=== PATIENT | female | born 1970 | race Two or more races ===

== ENCOUNTER 2017-02-19 12:18 | Emergency (ER) | payer MEDICAID ==
[~2017-02-19] VITALS: Ht 157.5 cm; Wt 70.3 kg
[2017-02-19 13:19] LABS: Urine Bacteria NONE SEEN /hpf (None Seen); Urine Blood 2+ /uL (Negative); Urine Mucus FEW (None Seen); Urine Specific Gravity 1.016 (1.001-1.035); Urine WBC 2 /hpf (0 - 5)
[2017-02-19] MEDS ORDERED: SODIUM CHLORIDE 0.9% 500 ML IV ONE (13:45)
[2017-02-19 13:59] LABS: Basophils # (auto) 0 uL; Basophils % (auto) 0.7 % (0.0-2.0); Eosinophils # (auto) 0.1 uL; Eosinophils % (auto) 1.8 % (0.0-7.0); Hematocrit 35.3 % (36.0-46.0); Hemoglobin 11.5 g/dL (12.2-16.2); Lymphocytes # (auto) 2.5 uL; Lymphocytes % (auto) 48.5 % (10.0-50.0); Mean Corpuscular Hemoglobin 28.4 pg (28.0-32.0); Mean Corpuscular Hgb Conc. 32.6 g/dL (32.0-36.0); Mean Corpuscular Volume 87.1 fL (80.0-100.0); Monocytes # (auto) 0.5 uL; Monocytes % (auto) 8.6 % (0.0-12.0); Neutrophils # (auto) 2.1 uL; Neutrophils % (auto) 40.4 % (37.0-80.0); Nucleated Red Blood Cells % 0.1 %; Platelet Count (auto) 258 10^3/uL (140-450); Red Blood Cells 4.05 10^6/uL (4.0-5.20); Red Cell Distribution Width 14.8 % (11.8-14.3); White Blood Cell 5.2 10^3/uL (4.4-10.8)
[2017-02-19 14:21] LABS: Albumin 3.9 g/dL (3.4-5.0); BUN/Creatinine Ratio 19.2; Bilirubin, Total 0.3 mg/dL (0.2-1.0); Calcium 8.7 mg/dL (8.5-10.1); Potassium 3.8 mmol/L (3.5-5.1); Total Protein 7.4 g/dL (6.4-8.2)
[2017-02-19 18:19] VITALS: BP 122/68
== END 2017-02-19 18:51 | disposition home or self-care (01) ==
LOC: ER 12:18
DX: D25.9 Leiomyoma of uterus, unspecified (principal); R51 Headache; R42 Dizziness and giddiness
CPT/HCPCS: 36415; 76830; 76856; 80053; 81001; 84702; 85025; 96360; 99285; J7030

== ENCOUNTER 2019-04-26 09:43 | Emergency (ER) | payer MEDICAID ==
[~2019-04-26] VITALS: Ht 157.5 cm; Wt 71.7 kg
[2019-04-26 11:48] VITALS: BP 135/69
== END 2019-04-26 12:01 | disposition home or self-care (01) ==
LOC: ER 09:48 → MERGE 09:48 → ER 12:01
DX: J01.90 Acute sinusitis, unspecified (principal); Z87.891 Personal history of nicotine dependence

== ENCOUNTER 2021-08-09 14:03 | Emergency (ER) | payer MEDICAID ==
[~2021-08-09] VITALS: Ht 157.5 cm; Wt 71.7 kg
[2021-08-09 15:21] LABS: Basophils # (auto) 0 10 ^3/uL (0-0.2); Basophils % (auto) 0.6 % (0.0-2.0); Eosinophils # (auto) 0.1 10 ^3/uL (0-0.8); Eosinophils % (auto) 1.7 % (0.0-7.0); Hematocrit 38.1 % (36.0-46.0); Hemoglobin 13.1 g/dL (12.2-16.2); Lymphocytes # (auto) 1.5 10 ^3/uL (0.4-5.4); Lymphocytes % (auto) 31.7 % (10.0-50.0); Mean Corpuscular Hemoglobin 32.4 pg (28.0-32.0); Mean Corpuscular Hgb Conc. 34.3 g/dL (32.0-36.0); Mean Corpuscular Volume 94.5 fL (80.0-100.0); Monocytes # (auto) 0.3 10 ^3/uL (0-1.3); Monocytes % (auto) 6.9 % (0.0-12.0); Neutrophils # (auto) 2.9 10 ^3/uL (1.6-8.6); Neutrophils % (auto) 59.1 % (37.0-80.0); Nucleated Red Blood Cells % 0.1 %; Red Blood Cells 4.03 10^6/uL (4.0-5.20); Red Cell Distribution Width 13.7 % (11.8-14.3); White Blood Cell 4.9 10^3/uL (4.4-10.8)
[2021-08-09 15:40] LABS: Albumin 3.7 g/dL (3.4-5.0); BUN/Creatinine Ratio 17.8; Calcium 8.5 mg/dL (8.5-10.1); Potassium 3.9 mmol/L (3.5-5.1)
[2021-08-09 15:43] LABS: Bilirubin, Total 0.3 mg/dL (0.2-1.0)
[2021-08-10 00:30] VITALS: BP 142/69
[2021-08-10 01:20] LABS: Urine Bacteria NONE SEEN /hpf (None Seen); Urine Blood 3+ /uL (Negative); Urine Mucus FEW (None Seen); Urine Specific Gravity 1.025 (1.001-1.035); Urine WBC 62 /hpf (0 - 5)
== END 2021-08-10 00:17 | disposition home or self-care (01) ==
LOC: ER 14:03
DX: N93.9 Abnormal uterine and vaginal bleeding, unspecified (principal); M54.50 Low back pain, unspecified; D25.9 Leiomyoma of uterus, unspecified; N93.8 Other specified abnormal uterine and vaginal bleeding; N18.9 Chronic kidney disease, unspecified
CPT/HCPCS: 36415; 74176; 76856; 80053; 81001; 84702; 85025

== ENCOUNTER 2023-07-21 12:03 | Emergency (ER) | payer MEDICAID ==
[~2023-07-21] VITALS: Ht 154.9 cm; Wt 74.4 kg
[2023-07-21 14:29] LABS: Basophils # (auto) 0 10 ^3/uL (0-0.2); Basophils % (auto) 0.5 % (0.0-2.0); Eosinophils # (auto) 0.1 10 ^3/uL (0-0.8); Eosinophils % (auto) 1.5 % (0.0-7.0); Hematocrit 42.3 % (36.0-46.0); Hemoglobin 13.8 g/dL (12.2-16.2); Lymphocytes # (auto) 2.1 10 ^3/uL (0.4-5.4); Lymphocytes % (auto) 43.3 % (10.0-50.0); Mean Corpuscular Hemoglobin 31.4 pg (28.0-32.0); Mean Corpuscular Hgb Conc. 32.6 g/dL (32.0-36.0); Mean Corpuscular Volume 96.3 fL (80.0-100.0); Monocytes # (auto) 0.3 10 ^3/uL (0-1.3); Monocytes % (auto) 5.9 % (0.0-12.0); Neutrophils # (auto) 2.3 10 ^3/uL (1.6-8.6); Neutrophils % (auto) 48.8 % (37.0-80.0); Red Blood Cells 4.39 10^6/uL (4.0-5.20); Red Cell Distribution Width 13.5 % (11.8-14.3); White Blood Cell 4.8 10^3/uL (4.4-10.8)
[2023-07-21 14:44] LABS: Chloride 107 mmol/L (98-107); Potassium 3.8 mmol/L (3.5-5.1); Sodium 140 mmol/L (136-145)
[2023-07-21 14:45] LABS: Anion Gap 5 (5-15); Calcium 9.4 mg/dL (8.7-10.4); Carbon Dioxide 28 mmol/L (20-30)
[2023-07-21 14:50] LABS: BUN/Creatinine Ratio 13.2 (10.0-20.0); Blood Urea Nitrogen 9 mg/dL (9-23); Glucose 83 mg/dL (74-106)
[2023-07-21] MEDS: ASPirin 81 mg TAB PO ONE (16:43)
[2023-07-21 16:44] VITALS: BP 142/75; PULSE 75; RESP 18; TEMP 98.1; O2SAT 97
== END 2023-07-21 16:45 | disposition home or self-care (01) ==
LOC: ER 12:03
DX: R07.89 Other chest pain (principal); Z79.899 Other long term (current) drug therapy
CPT/HCPCS: 36415; 71046; 80048; 83735; 84484; 85025

== ENCOUNTER 2025-03-18 06:29 | Emergency (ER) | payer MEDICAID ==
[~2025-03-18] VITALS: Ht 157.5 cm; Wt 72.2 kg
--- NOTE | 2025-03-18 06:52 | ED.PDOC ---
Musculoskeletal HPI Comments This is a 54 year-old female who presents to the ED with a chief complaint of Left Upper Extremity pain as of last night. Patient denies any trauma or injury to the area. Patient reports an associated numbing sensation as expresses concerns of possible [place]. Patient Patient has no further complaints or modifying factors at this time. Patient otherwise denies any chest pain, headache, fever, chills, dizziness, or N/V. 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, Ovarian Cancer, Uterine Fibroids Family History Family History: Family hx of DM, Family hx of heart charles Social History Smoker: Non-Smoker Alcohol: Denies ETOH Use Drugs: Denies Drug Use Lives In: Home Constitutional: denies: chills, diaphoresis, fatigue, fever, malaise, sweats, weakness, others EENTM: denies: blurred vision, double vision, ear bleeding, ear discharge, ear drainage, ear pain, ear ringing, eye pain, eye redness, hearing loss, mouth pain, mouth swelling, nasal discharge, nose bleeding, nose congestion, nose pain, photophobia, tearing, throat pain, throat swelling, voice changes, others Respiratory: denies: cough, hemoptysis, orthopnea, SOB at rest, shortness of breath, SOB with excertion, stridor, wheezing, others Cardiovascular: denies: chest pain, dizzy spells, diaphoresis, Dyspnea on exertion, edema, irregular heart beat, left arm pain, lightheadedness, palpitations, PND, syncope, others Gastrointestinal: denies: abdomen distended, abdominal pain, blood streaked bowels, constipated, diarrhea, dysphagia, difficulty swallowing, hematemesis, melena, nausea, poor appetite, poor fluid intake, rectal bleeding, rectal pain, vomiting, others Genitourinary: denies: abnormal vagina bleeding, burning, dyspareunia, dysuria, flank pain, frequency, hematuria, incontinence, pain, , vagina discharge, urgency, others Neurological: reports: left sided numbness; denies: dizziness, fainting, headache, left sided weakness, numbness, paresthesia, pre-existing deficit, right sided numbness, right sided weakness, seizure, speech problems, tingling, tremors, weakness, others Musculoskeletal: reports: joint pain; denies: back pain, gout, joint swelling, muscle pain, muscle stiffness, neck pain, others Integumetry: denies: bruises, change in color, change in hair/nails, dryness, laceration, lesions, lumps, rash, wounds, others Allergic/Immunocompromised: denies: Difficulty Healing, Frequent Infections, Hives, Itching, others Hematologic/Lymphatic: denies: anemia, blood clots, easy bleeding, easy bruising, swollen glands, others Endocrine: denies: excessive hunger, excessive sweating, excessive thirst, excessive urination, flushing, intolerance to cold, intolerance to heat, unexplained weight gain, unexplained weight loss, others Psychiatric: denies: anxiety, bipolar disorder, depression, hopeless, panic disorder, schizophrenia, sleepless, suicidal, others All Other Systems: Reviewed and Negative Physical Exam General Appearance: Moderate Distress HEENT: Normal ENT Inspection, Pharynx Normal, TMs Normal Neck: Full Range of Motion, Non-Tender, Normal, Normal Inspection Respiratory: Chest Non-Tender, Lungs Clear, No Accessory Muscle Use, No Resp iratory Distress, Normal Breath Sounds Cardiovascular: No Edema, No JVD, No Murmur, No Gallop, Normal Peripheral Pulses, Regular Rate/Rhythm Breast Exam: Deferred Gastrointestinal: No Organomegaly, Non Tender, No Pulsatile Mass, Normal Bowel Sounds, Soft Genitalia: Deferred Pelvic: Deferred Rectal: Deferred Extremities: No calf tenderness, Normal capillary refill, Normal inspection, Normal range of motion, Non-tender, No pedal edema Musculoskeletal : Apperance: Normal Neurologic: Alert, documentation clerk II-XII nml as Tested, No Motor Deficits, Normal Affect, Normal Mood, No Sensory Deficits Cerebellar Function: Normal Reflexes: Normal Skin: Dry, Normal Color, Warm Peripheral Pulses: 3+ Radial (R), 3+ Radial (L) Lymphatic: No Adenopathy Was a procedure done? Was a procedure done?: No Differential Diagnosis EXT Differential Diagnosis: Fracture, Sprain, Strain, Arthritis X-Ray, Labs, Meds, VS Vital Signs Date Time Temp Pulse Resp B/P (MAP) Pulse Ox O2 Delivery O2 Flow Rate FiO2 03/18/25 07:50 70 20 99 Room Air 03/18/25 07:50 98.5 70 20 129/85 (100) 99 98.5 03/18/25 06:32 98.0 68 18 152/88 98 98.0 Current Medications Medications (Trade) Dose Ordered Sig/Olya Route Start Time Stop Time Status Last Admin Ketorolac Tromethamine (Toradol Injection) 60 mg ONCE ONCE IM 03/18/25 07:00 03/18/25 07:01 DC 03/18/25 08:00 Patient alert. Complaining of shoulder pain. Vitals stable. Answering questions. Saturation pristine on room air. X-ray of the shoulder does not show any acute process other than chronic changes. No point tenderness. Was given pain medication. Was given prescription of Motrin. Was told to follow up with her orthopedic. Explained to the patient. Was told to follow up with her primary care physician. Was told to come back if there is any problem. Time of 1ST Reevaluation: 07:39 Reevaluation 1ST: Improved Patient Education/Counseling: Diagnosis, Treatment Family Education/Counseling: No Family Present Departure 1 Departure Time of Disposition: 09:22 Impression: Primary Impression: Tendinitis Disposition: 01 HOME / SELF CARE / HOMELESS Condition: Good e-Prescriptions Ibuprofen Micronized (MOTRIN TABLET) 600 Mg Tb 600 MG PO TID PRN for 3 Days, #9 TAB *Black box warning-NSAIDS can increase risk of [place] & hypertension, GI irritation, ulceration, bleed, perferation. Do not use post cardiac surgery. Use short duration/lowest effective dose. Prov: NAEEM WEBER MD 03/18/25 Discharged With: Self Critical Care Note Critical Care Time?: No Stability Stability form required: No Heart Score Heart Score: Heart Score Response (Comments) Value History N/A 0 EKG N/A 0 Age 45-64 1 Risk Factors N/A 0 Troponin N/A 0 Total 1 I personally scribed for NAEEM WEBER MD ([email or web address]) on 03/18/25 at 06:52. Electronically submitted by Martha Rey ([email or web address]). NAEEM WEBER MD Mar 18, 2025 06:52
--- NOTE | 2025-03-18 07:31 | DVH ---
Indication: cuff Technique: XY L SHOULDER 2+ VIEW XRAYXY Comparison: None FINDINGS/IMPRESSION: 4 mm ossific fragment at the left humeral head greater tuberosity likely sequela of calcific tendinosis. Correlate with point tenderness to exclude acute avulsion fracture. Moderate left AC joint arthrosis. No evidence for glenohumeral dislocation.
[2025-03-18 07:50] VITALS: BP 129/85; PULSE 70; RESP 20; TEMP 98.5; O2SAT 99
[2025-03-18] MEDS: KETOROLAC TROMETH 60MG/2ML VIAL IM ONE (08:00)
[2025-03-18] MEDS ORDERED: IBU600T PO (09:23)
== END 2025-03-18 09:46 | disposition home or self-care (01) ==
LOC: ER 06:29
DX: M77.9 Enthesopathy, unspecified (principal); N18.9 Chronic kidney disease, unspecified
CPT/HCPCS: 73030; 96372; 99283; J1885